=== PATIENT | male | born 1990 | race Caucasian/White ===

== ENCOUNTER 2018-10-27 14:47 | Emergency (ER) | payer OTHER, SELFPAY ==
[2018-10-27 15:05] VITALS: BP 130/92; PULSE 112; RESP 18; TEMP 38.3; O2SAT 97
--- NOTE | 2018-10-27 15:10 | W.ED.GENAD ---
Discharge Plan Disposition Patient Disposition: HOME Condition: Good Discharge Details Chief Complaint: Sorethroat Clinical Impression: Pharyngitis Primary Care Provider: None,None ED Provider: Gerry Chaney Home Meds and New Rx's Prescriptions: New amoxicillin 500 mg capsule 500 mg PO BID Qty: 20 RF: 0 Discharge Instructions Instructions: Pharyngitis (ED) Additional Instructions: Please take 800 mg of ibuprofen every 6 hours and 1000 mg of Tylenol every 6 hours for control of your pain and fever. Please take the antibiotic as directed. If you notice any worsening of your symptoms, or any new symptoms such as vomiting, diarrhea, fever, chills, shortness of breath, chest pain, numbness, weakness, or fainting , please return immediately to the emergency department for reevaluation. Please follow up with your primary care provider as soon as possible for reassessment and reevaluation. As always, it was a pleasure participating in your medical care today. Medical Decision Making This is a very pleasant 27-year-old male who presents for evaluation of sore throat. The child's 3 other children have all been diagnosed strep positive at their die maker stamping. Patient's current signs and symptoms are clinically consistent with strep. He has cervical lymphadenopathy that is tender, no cough, notable erythema in the posterior oropharynx. Screening strep test is negative however with his clinical symptoms suggestive of strep I do feel that treatment is indicated. He is febrile, and will be given Tylenol Motrin. No signs of meningitis, peritonsillar abscess, or other significant abnormality. I discussed red flags which to return as well as the importance of close follow-up with his primary care provider. I have extensively reviewed the treatment plan and discharge instructions with the patient. I have addressed all patient concerns at this time. The patient was made aware of what symptoms to monitor for that would warrant a return to the emergency department. Discussed the plan with the patient, they demonstrate verbal understanding and agreement with our assessment and plan at this time. HPI General Date/Time Provider Initiated Documentation: 10/27/18 14:56. HPI Narrative: This is a 27-year-old male with no past medical history who presents today for sore throat for the last 3 days. Patient's 3 children have all been diagnosed as strep positive and are currently on antibiotics. Patient denies any difficulty swallowing, chest pain, cough, severe headache, neck pain or neck stiffness. He does admit to mild fever and chills. Denies any other complaints at this time. He denies any severe fatigue or recent history of mono or mono exposure. He denies any recent surgery, IV or illicit drug use or pertinent family history. Related Data Home Medications Medication Instructions Recorded Confirmed amoxicillin 500 mg PO BID #20 cap 10/27/18 Previous Rx's Medication Instructions Recorded amoxicillin 500 mg PO BID #20 cap 10/27/18 Allergies Allergy/AdvReac Type Severity Reaction Status Date / Time No Known Allergies Allergy Unverified 10/27/18 15:02 General Stated Complaint: Sorethroat JONATHAN: 4 Review of Systems Review of Systems All systems reviewed & are unremarkable except as noted in HPI and below PFSH Social History Smoking and Tabacco status: Never Exam Narrative Exam Narrative: 1.Const: Well-nourished, Well-developed, appearing stated age 2.Eyes: PERRL, no conjunctival injection, and symmetrical lids. 3.ENT: Atraumatic external nose and ears. Moist MM. Neck: Symmetric, trachea midline, No thyromegaly. Notable anterior cervical lymphadenopathy, tender cervical lymphadenopathy. Notable erythema in the posterior oropharynx. No evidence of tonsillar exudate. No signs of peritonsillar abscess, uvular deviation, airway compromise, or other abnormality. No neck mass. Patient demonstrates good movement of cervical neck. There is no nuchal rigidity, no nuchal tenderness. Patient is able to flex the neck without any difficulty or significant pain. Negative Kernig's and Brudzinski sign. 4.CVS: +S1/S2, No murmurs or gallops. Peripheral pulses 2+ and equal in all extremities. Brisk capillary refill in all extremities. 5.RESP: Unlabored respiratory effort. Clear to auscultation bilaterally. No wheezes rales or rhonchi 6.GI: Soft, Nontender/Nondistended, No hepatosplenomegaly. No guarding or rebound. 7.MSK: Normocephalic/Atraumatic, Extremities w/o deformity or ttp No cyanosis or clubbing, Normal movement of all extremities 8.Skin: Warm, Dry. No rashes or lesions. 9.Neuro: inventory manager II-XII grossly intact. Sensation grossly intact, no focal neurologic deficits. 10.Psych: (AAO) x3. Appropriate mood and affect Course Vital Signs Temperature 38.3 C H 10/27/18 15:05 Pulse 112 H 10/27/18 15:05 Respiratory Rate 18 10/27/18 15:05 Blood Pressure 130/92 H 10/27/18 15:05 Pulse Oximetry 97 10/27/18 15:05 Temperature 38.3 C H 10/27/18 15:05 Temperature Source Skin 10/27/18 15:05 Pulse 112 H 10/27/18 15:05 Respiratory Rate 18 10/27/18 15:05 Blood Pressure 130/92 H 10/27/18 15:05 Pulse Oximetry 97 10/27/18 15:05 Oxygen Delivery Method Room Air 10/27/18 15:05 Oxygen Flow Rate 0 10/27/18 15:05 Pain Level 6 10/27/18 15:05
[2018-10-27] MEDS: Acetaminophen 500 MG TAB 1000 MG PO (15:14)
[2018-10-27] MEDS: Ibuprofen 800 MG TAB PO (15:14)
== END 2018-10-27 15:15 | disposition home or self-care (01) ==
LOC: ER 15:34
PROVIDERS: Emergency Provider Student in an Organized Health Care Education/Training Program
DX: J02.9 Acute pharyngitis, unspecified (principal); R50.9 Fever, unspecified; R59.0 Localized enlarged lymph nodes
CPT/HCPCS: 87880; 99283; 87081

== ENCOUNTER 2019-07-28 16:01 | Emergency (ER) | payer OTHER, SELFPAY ==
[2019-07-28 16:05] VITALS: BP 172/92; PULSE 107; RESP 18; TEMP 36.7; O2SAT 97
--- NOTE | 2019-07-28 16:22 | W.ED.GENAD ---
Discharge Plan Disposition Patient Disposition: HOME Condition: Stable Discharge Details Chief Complaint: RespSymp Clinical Impression: Hoarseness of voice, History of gastroesophageal reflux (GERD) Primary Care Provider: None,None ED Provider: Kate Watkins Home Meds and New Rx's Prescriptions: No Action No Known Home Meds RF: 0 Discharge Instructions Instructions: Gastroesophageal Reflux Disease (ED) Additional Instructions: Avoid possible dietary triggers for reflux which can include alcohol, smoking, spicy foods, chocolate, peppermint, etc. Be sure to rest your voice as much as possible. You can try drinking warm water with lemon to help soothe your throat and voice. You will receive a call from care management regarding a follow up appointment with a primary care doctor, the ear, nose and throat doctor and possible surgery for evaluation. Return to the emergency department if you develop any worsening or new concerning symptoms. Referrals: Martina Castaneda MD [ [facility] STAFF PHYSICIAN] - Alan Velasco MD [ [facility] STAFF PHYSICIAN] - Discharge Data Discharge Date/Time-TO BE ENTERED AT DEPARTURE: 07/28/19 17:15 Discharge Physician: Kate Watkins Medical Decision Making 28-year-old male presents with hoarseness for the past 5 weeks. Also admitted to intermittent chest congestion but states this is slightly improved with Mucinex. He has no other associated symptoms. He denies fever, sore throat, cough, chest pain, shortness of breath, abdominal pain, weight loss, headache or neck pain. Blood pressure mildly hypertensive. Heart rate normal on evaluation. Afebrile. Patient appears nontoxic. Normal ENT exam. Lungs clear. Abdomen soft nontender. After long discussion with patient about possible etiology, it appears that his GERD may be a more contributing factor. He denies any history of allergy symptoms and this does not appear infectious. Discussed that a vocal cord polyp or mass or other abnormality could be a possibility. Patient snores heavily at night and advised that he also obtain a sleep study. Patient is not a PCP. Will place him on care management list to arrange with PCP to establish care, follow-up with ENT for further evaluation, as well as follow-up with surgery for evaluation and possible EGD. He is advised to restart his PPI, rest his voice, drink warm water and avoid possible triggers of his GERD. Advised to return with any concerns. Medical Records Medical records reviewed: Yes I reviewed the patient's medical records. HPI General Mode of arrival: ambulatory. Date/Time Provider Initiated Documentation: 07/28/19 16:15. Limitations to Documentation: no limitations. Information obtained by: patient. HPI Narrative: Patient is a 28-year-old male who presents with hoarseness of voice for the past 5 weeks. Patient states he awoke one morning with a hoarse voice which then progressed to him losing his voice. He states over the past week he feels that this is slightly improved. Patient states he often has indigestion and reflux depending on certain foods in his diet. He states he has had intermittent chest congestion which has been improved with Mucinex. He denies any fever, ear pain, sore throat, cough, chest pain, shortness of breath, abdominal pain, nausea, vomiting or diarrhea. He denies any weight loss. He denies any recent injury. He denies headache or neck pain. Related Data Home Medications Medication Instructions Recorded Confirmed Unknown [No Known Home Meds] 07/28/19 07/28/19 Allergies Allergy/AdvReac Type Severity Reaction Status Date / Time No Known Allergies Allergy Unverified 07/28/19 16:07 General Stated Complaint: RespSymp JONATHAN: 4 Review of Systems All systems reviewed & are unremarkable except as noted in HPI and below Constitutional Constitutional: Reports as per HPI, Denies chills and Denies fever(s) Eyes Eyes: Denies blurry vision ENT Ears, Nose, Mouth, and Throat: Reports change in voice, Denies dizziness, Reports hoarseness, Denies sore throat and Denies throat swelling Cardiovascular Cardiovascular: Denies chest pain and Denies dyspnea Respiratory Respiratory: Denies cough and Denies dyspnea Gastrointestinal Gastrointestinal: Denies abdominal pain, Denies diarrhea and Denies vomiting Genitourinary Genitourinary: Denies hematuria and Denies dysuria Musculoskeletal Musculoskeletal: Denies back pain and Denies numbness Integumentary/Breasts Skin/Breast: Denies lesions and Denies rash Neurologic Neurologic: Denies dizziness, Denies focal weakness and Denies numbness Allergic/Immunologic Allergic/Immunologic: Denies throat swelling [facility] Medical History No significant past medical history (Acute) Surgical History No significant past surgical history (Acute) Social History Smoking/Tobacco Use Status: Former Tobacco Use Alcohol Intake: never Drug use: Never Do you feel safe in your relationship?: Yes Exam Const General: cooperative, healthy appearing and no acute distress HENMT Head: normal to inspection Ears: hearing grossly normal bilaterally, external ears normal and TM's normal bilaterally General nose exam: external nose normal Face and sinus: normal facial exam Mouth: oral mucosae normal Throat: posterior oropharynx normal Eyes General: appearance normal, both eyes and all related structures Neck Neck: normal visual inspection Resp Effort & Inspection: normal respiratory effort and able to speak in complete sentences Auscultation: clear to auscultation bilaterally Cardio Rate: regular rate Rhythm: regular rhythm GI Inspection: normal to inspection Palpation: not firm, no masses and nontender Auscultation: normal bowel sounds Skin General skin exam: no rashes or lesions noted Neuro General: alert, awake and oriented x3 Motor: muscle tone normal throughout Extrem General: normal to inspection and full ROM Psych Appearance: grossly normal Affect: normal affect Course Vital Signs Vital signs: Vital Signs Temperature 98.1 F 07/28/19 16:05 Pulse 107 H 07/28/19 16:05 Respiratory Rate 18 07/28/19 16:05 Blood Pressure 172/92 H 07/28/19 16:05 Pulse Oximetry 97 07/28/19 16:05 Temperature 98.1 F 07/28/19 16:05 Temperature Source Skin 07/28/19 16:05 Pulse 107 H 07/28/19 16:05 Respiratory Rate 18 07/28/19 16:05 Respiratory Effort Non-Labored 07/28/19 16:08 Respiratory Depth Normal 07/28/19 16:08 Blood Pressure 172/92 H 07/28/19 16:05 Blood Pressure Position Sitting 07/28/19 16:05 Pulse Oximetry 97 07/28/19 16:05 Oxygen Delivery Method Room Air 07/28/19 16:05 Oxygen Flow Rate 0 07/28/19 16:05
--- NOTE | 2019-07-28 16:55 | NUR.NOTE ---
Nursing Note: copy put in [facility] box 07/28/19
--- NOTE | 2019-07-30 16:07 | CMPROGNOTE_ITS ---
Care Management Progress Note CM faxed ED F/U PCP assignment request to [facility], 07/30/19@9391 CM faxed referral including clinicals to [facility] for requested follow up, 07/30/19@2062 CM faxed referral including clinicals to ENT for requested follow up, 07/30/19@8693
--- NOTE | 2019-07-30 16:07 | PDOC.ERCMPRO ---
Care Management Progress Note CM faxed ED F/U PCP assignment request to [facility], 07/30/19@8741 CM faxed referral including clinicals to [facility] for requested follow up, 07/30/19@1252 CM faxed referral including clinicals to ENT for requested follow up, 07/30/19@8643
== END 2019-07-28 17:15 | disposition home or self-care (01) ==
PROVIDERS: Emergency Provider Physician Assistant
DX: R49.0 Dysphonia (principal); K21.9 Gastro-esophageal reflux disease without esophagitis; R03.0 Elevated blood-pressure reading, without diagnosis of hypertension; Z87.891 Personal history of nicotine dependence
CPT/HCPCS: 99282

== ENCOUNTER 2021-01-01 14:14 | Emergency (ER) | payer OTHER, SELFPAY ==
[2021-01-01 14:19] VITALS: BP 154/84; PULSE 100; RESP 18; TEMP 36.7; O2SAT 95
--- NOTE | 2021-01-01 15:20 | ED.GENADUL_ITS ---
Discharge Plan Disposition Patient Disposition: HOME Condition: Stable Discharge Details Clinical Impression: Rash associated with COVID-19 Primary Care Provider: None,None ED Provider: Parmjit Sparks Home Meds and New Rx's Prescriptions: No Action No Known Home Meds RF: 0 Discharge Instructions Instructions: COVID-19 (Coronavirus Disease 2019) (ED) Additional Instructions: Please follow-up with a primary care physician. Rest at home and quarantine until no fever or symtpoms for >48hours - follow guidance as directed by [facility]. Drink plenty of fluids to stay hydrated. Return to the ER for any worsening or new concerning symptoms. Medical Decision Making 30yo m with COVID, fever recently broke, has rash abdomen and upper thighs since this AM that is now resolved. Suspect viral exanthem. Patient saturating well and in no respiratory distress. Plan for discharge with outpatient follow-up - will need PCP established. Referred to care management. Usual and customary discharge instructions reviewed with patient. HPI General Mode of arrival: ambulatory . Date/Time Provider Initiated Documentation: 01/01/21 14:18 . Limitations to Documentation: no limitations . Information obtained by: patient . HPI Narrative: 30yo m here with chief complaint of rash. Patient notes rash noticed this AM. Red, not itchy, localized to upper thighs bilateral and abdomen. Abdomen has not resolved and rash on legs improved. No penile discharge or pain. No tick bites. Patient tested positive for COVID 10 days ago and has persistent nonproductive cough and intermittent fever. Notes fever broke this AM. Patient has no associated chest pain or SOB. No leg swelling or calf pain. Related Data Home Medications Medication Instructions Recorded Confirmed Unknown [No Known Home Meds] 07/28/19 07/28/19 Allergies Allergy/AdvReac Type Severity Reaction Status Date / Time No Known Allergies Allergy Unverified 01/01/21 14:26 General Stated Complaint: RashLesion JONATHAN: 3 Review of Systems All systems reviewed & are unremarkable except as noted in HPI and below Constitutional Constitutional: Reports as per HPI Respiratory Respiratory: Reports as per HPI [facility] Medical History No significant past medical history Surgical History No significant past surgical history Social History Smoking/Tobacco Use Status: Former Tobacco Use Smoking risk assessment performed?: Yes Alcohol Intake: never Drug use: Never Substance use type: does not use Do you feel safe at home: Yes Do you feel safe in your relationship?: Yes Exam Const General: cooperative and no acute distress HENMT Mouth: moist mucous membranes Eyes Conjunctivae: normal conjunctivae Sclera: normal sclerae Neck Neck: trachea midline Resp Effort & Inspection: normal respiratory effort, able to speak in complete sentences, not labored and no respiratory distress Cardio Rate: regular rate (98bpm) and not tachycardic Rhythm: regular rhythm GI Palpation: soft and nontender Penis: normal penis Meatus: meatus normal and no meatla discharge Scrotum: scrotum normal Skin Rashes: rashes noted (faint pink blotchy macules on upper thighs, carri) Neuro General: patient alert, patient awake, patient oriented x3 and tone normal Extrem General: no edema Psych Appearance: grossly normal Mental Status: mental status grossly normal Speech and Movement: speech and movement normal Course Vital Signs Vital signs: Vital Signs Temperature 36.7 C 01/01/21 14:19 Pulse 100 H 01/01/21 14:19 Respiratory Rate 18 01/01/21 14:19 Blood Pressure 154/84 H 01/01/21 14:19 Pulse Oximetry 95 01/01/21 14:19 Temperature 36.7 C 01/01/21 14:19 Temperature Source Temporal Artery Scan 01/01/21 14:19 Pulse 100 H 01/01/21 14:19 Respiratory Rate 18 01/01/21 14:19 Respiratory Effort Non-Labored 01/01/21 14:27 Blood Pressure 154/84 H 01/01/21 14:19 Blood Pressure Position Supine 01/01/21 14:19 Pulse Oximetry 95 01/01/21 14:19 Oxygen Delivery Method Room Air 01/01/21 14:19 Oxygen Flow Rate 0 01/01/21 14:19 Pain Level 4 01/01/21 14:19
[2021-01-01 15:21] VITALS: BP 137/81; PULSE 98; RESP 16; TEMP 36.8; O2SAT 96
--- NOTE | 2021-01-01 15:31 | NUR.NOTE ---
Nursing Note: referral to cm for pcp. MG
--- NOTE | 2021-01-02 15:15 | PDOC.ERCMPRO ---
- If Service Date Differs Date of service: 01/02/21 Time of Service: 15:15 Care Management Progress Note Rip is seen in the ED for a rash associated with Covid 19. At the request of ED provider, CM coordinates a referral to SCHUYLER Alejo, AIRCRA[employer] INSTRUMENT REPAIRER[employer]BC, of [facility], on-call provider, to assist Rip in obtaining a follow up appointment and in establishing care with a PCP.
== END 2021-01-01 15:37 | disposition home or self-care (01) ==
LOC: ER 15:32
PROVIDERS: Emergency Provider Student in an Organized Health Care Education/Training Program
DX: U07.1 COVID-19 (principal); R21 Rash and other nonspecific skin eruption; R05 Cough
CPT/HCPCS: 36415; 99283; 99284

== ENCOUNTER 2022-06-05 16:50 | Emergency (ER) | payer OTHER, SELFPAY ==
[2022-06-05] VITALS (13 sets, daily range): BP systolic 147–159; BP diastolic 86–90; PULSE 97–111; RESP 12–23; TEMP 36.8; O2SAT 93–99
--- NOTE | 2022-06-05 16:45 | RT.EKG_ITS ---
APPROVED REPORT Exam: Resting ECG Reason for Exam: chest pain Patient Location: E HR:102 bpm ECG Measurements Heart Rate 102 AXIS CO 132 P 39 QRSd 83 QRS 14 QT 329 T 29 QTc 429 Conclusion Sinus tachycardia...rate> 99
--- NOTE | 2022-06-05 17:15 | DI.RAD_ITS ---
Exam(s) XR CHEST 2V PA LATERAL EXAM: XR CHEST 2V PA LATERAL CLINICAL HISTORY: chest pain. TECHNIQUE: 2D digital imaging was performed. COMPARISON: No exams were available for comparison FINDINGS: 2 views: Heart size is normal. The mediastinum is not widened. Lungs are clear. No infiltrates nor pleural effusions. IMPRESSION: No acute pulmonary findings. DATA REPOSITORY: RADIATION DOSE DELIVERED:
--- NOTE | 2022-06-05 17:21 | ED.GENADUL_ITS ---
Discharge Plan Disposition Patient Disposition: HOME Condition: Stable Discharge Details Chief Complaint: Chest Pain Clinical Impression: Chest pain Primary Care Provider: None,None ED Provider: Mat Mosquera Home Meds and New Rx's Prescriptions: No Action No Known Home Meds Discharge Instructions Instructions: Chest Pain (ED) Additional Instructions: your blood work showed a mild increase in your liver functions tests, your tests to evaluate for cardiac causes of your pain were negative i placed you on the follow up list to see a primary care provider if you feel more ill, have severe worsening pain or difficulty breathing return to the emergency department Medical Decision Making 31 yo former smoker with no chronic medical problems comes in with cc of chest pain and left hand numbness. He stateshe has had the chest pain off and on for several weeks and is not associated with exertion and will come on randomly. He gets an ache in the anterior chest, no pressure, no radiation of the pain, no back pain or n/v or diaphoresis. He states the last two days he has had intermittent numbness in the left hand as well, denies weakness, vision changes, slurred speech. He arrives stable and appears well speaking in full sentences. He has clear lungs, no jvd, normal heart sounds. He has normal sensation and rom of the hand, normal pulses and no swelling. He states the whole hand normally goes numb not specific fingers. He does do a lot of repetitive motion with work with his arms so suspect this could be a peripheral neuropathy, nih of 0 so doubt cva and no other symptoms to suggest tia. Will obtain ecg and troponin, heart score is 2. no tearing back pain and normal vascular exam so doubt dissec tion. Wells low and perc negative so doubt pe labs other than mild elevation in lft's unremarkable, no drug abuse and so suspect this could be from being mildly oveweight and possible nonalcoholic fa tty liver disease, has no ruq tenderness at all on exam so doubt gallbladder pathology. His troponin is negative and so is his xray, given over 3 hours of symptoms do not feel delta troponin indicated. He is stable for d/c, advised to f/u with pcp and return precautions given Differential Diagnosis Differential Diagnosis: nstemi, cad, chest wall pain, peripheral neuropathy Lab Data Lab results reviewed: Yes I reviewed the patient's lab results. ECG Data Attestation: I personally reviewed and interpreted this ECG (s) as follows: Prior ECG tracings: not available for review Interpretation: sinus tachycardia, rate of 101, no stemi HPI General Mode of arrival: ambulatory . Date/Time Provider Initiated Documentation: 06/05/22 17:07 . Limitations to Documentation: no limitations . Information obtained by: patient . History of Present Illness 31 year old M presents to the emergency department with the chief complaint of chest pain, Patient started experiencing this week(s) (2) and it has been intermittent. No relieving factors improve symptom(s), No exacerbating factors reported . Patient notes other (left hand numbness). Patient did receive the following treatments prior to arrival, none Related Data Home Medications Medication Instructions Recorded Confirmed Unknown [No Known Home Meds] 07/28/19 06/05/22 Allergies Allergy/AdvReac Type Severity Reaction Status Date / Time No Known Allergies Allergy Unverified 06/05/22 17:01 General Stated Complaint: Chest Pain JONATHAN: 2 Review of Systems All systems reviewed & are unremarkable except as noted in HPI and below Constitutional Constitutional: Denies chills, Denies fever(s) and Denies weakness Eyes Eyes: Denies loss of vision Cardiovascular Cardiovascular: Denies dyspnea Respiratory Respiratory: Denies cough and Denies dyspnea Gastrointestinal Gastrointestinal: Denies abdominal pain, Denies nausea and Denies vomiting Musculoskeletal Musculoskeletal: Denies joint swelling Neurologic Neurologic: Denies loss of vision and Denies weakness PFSH All Active Problems (Updated 06/05/22 @ 18:51 by Mat Mosquera MD) Rash associated with COVID-19 (Acute) Chest pain (Acute) Medical History No significant past medical history Surgical History No significant past surgical history Social History Smoking/Tobacco Use Status: Former Tobacco Use Smoking risk assessment performed?: Yes Alcohol Intake: never Drug use: Never Substance use type: does not use Do you feel safe at home: Yes Do you feel safe in your relationship?: Yes Exam Const General: no acute distress Orientation: alert HENMT Head: normal to inspection Ears: external ears normal General nose exam: external nose normal Mouth: moist mucous membranes Eyes General: appearance normal, both eyes and all related structures Neck Neck: normal visual inspection Resp Effort & Inspection: normal respiratory effort and able to speak in complete sentences Cardio Rate: regular rate GI Palpation: soft and nontender Skin General skin exam: no rashes or lesions noted Neuro General: patient alert and patient oriented x3 Extrem General: normal to inspection Psych Mental Status: mental status grossly normal Course Vital Signs Vital signs: Vital Signs Temperature 36.8 C 06/05/22 16:53 Pulse 99 H 06/05/22 16:53 Respiratory Rate 16 06/05/22 16:53 Blood Pressure 159/86 H 06/05/22 16:53 Pulse Oximetry 99 06/05/22 16:53 Temperature 36.8 C 06/05/22 16:53 Temperature Source Oral 06/05/22 16:53 Pulse 99 H 06/05/22 16:53 Respiratory Rate 16 06/05/22 16:53 Blood Pressure 159/86 H 06/05/22 16:53 Blood Pressure Position Sitting 06/05/22 16:53 Pulse Oximetry 99 06/05/22 16:53 Oxygen Delivery Method Room Air 06/05/22 16:53 Oxygen Flow Rate 0 06/05/22 16:53 Pain Level 4 06/05/22 16:53
[2022-06-05 17:44] LABS: Abs Immature Grans 0.09 10^3/uL (0.0-0.06); Absolute Basophil Count 0.05 10^3/uL (0.0-0.2); Absolute Eosinophil Count 0.07 10^3/uL (0.0-0.7); Absolute Lymphocyte Count 2.76 10^3/uL (1.2-3.4); Absolute Monocyte Count 0.68 10^3/uL (0.1-0.8); Absolute Neutrophil Count 6.99 10^3/uL (1.2-6.7); Basophils % 0.5; Eosinophils % 0.7; HCT 38.7 % (40.0-50.0); HGB 13.5 g/dL (13.5-17.5); Immature Grans % 0.8; Lymphocytes % 25.9; MCH 30.9 pg (27.0-33.0); MCHC 34.9 % (32.0-36.0); MCV 89 fL (80-95); MPV 11.4 fL (8.0-11.0); Monocytes % 6.4; Neutrophils % 65.7; Platelet Count 155 10^3/uL (130-400); RBC 4.37 10^6/uL (4.36-5.78); RDW 14.8 % (11.8-14.1); RDW-SD 47.7 fL; WBC 10.64 10^3/uL (4.4-10.8)
[2022-06-05 18:08] LABS: ALT 84 U/L (16-63); AST 39 U/L (15-37); Alkaline Phosphatase 113 U/L (46-116); BUN 15 mg/dL (7-18); Bilirubin, Total 1.5 mg/dL (0.2-1.0); CREATININE 0.9 mg/dL (0.70-1.30); Calcium 8.8 mg/dL (8.5-10.1); Chloride 100 mmol/L (98-107); Estimated GFR 116.37 (mL/min/1.73m2); Glucose 213 mg/dL (74-106); Magnesium 1.8 mg/dL (1.8-2.4); Potassium 3.5 mmol/L (3.5-5.1); Sodium 137 mmol/L (136-145); Total Protein 8.3 g/dL (6.4-8.2); Troponin I < 50 ng/L (<or=60)
--- NOTE | 2022-06-05 18:22 | DI.VRAD_ITS ---
PROCEDURE INFORMATION: Exam: XR Chest Exam date and time: 06/05/2022 5:45 PM Age: 31 years old Clinical indication: Other: Chest pain TECHNIQUE: Imaging protocol: Radiologic exam of the chest. Views: 2 views. COMPARISON: No relevant prior studies available. FINDINGS: Lungs: Unremarkable. No consolidation. Pleural spaces: Unremarkable. No pleural effusion. No pneumothorax. Heart/Mediastinum: Unremarkable. No cardiomegaly. Bones/joints: Unremarkable. IMPRESSION: No acute findings. Dictated and Authenticated by: Corey Martin MD. Ordering:LUIS E Rivero MD
--- NOTE | 2022-06-06 13:37 | NUR.NOTE ---
Nursing Note: Referral given to Care Management for needs PCP, chest pain, within 1 week.
[2022-06-07 11:37] LABS: Hepatitis A Antibody IgM Negative (Negative); Hepatitis B Core Antibody Negative (Negative); Hepatitis B surface Ag Negative (Negative); Hepatitis C Ab w Rflx HCV PCR Negative (Negative)
== END 2022-06-05 19:01 | disposition home or self-care (01) ==
PROVIDERS: Emergency Provider Emergency Medicine
DX: R07.9 Chest pain, unspecified (principal); R20.0 Anesthesia of skin; R79.89 Other specified abnormal findings of blood chemistry; Z87.891 Personal history of nicotine dependence
CPT/HCPCS: 80053; 86704; 86709; 86803; 87340; 93005; 99283; 71046; 83735; 84484; 85025; 93010; 99284

== ENCOUNTER 2022-11-06 18:52 | Emergency (ER) | payer OTHER, SELFPAY ==
[2022-11-06 18:57] VITALS: BP 169/89; PULSE 85; RESP 16; TEMP 36.9; O2SAT 99
--- NOTE | 2022-11-06 19:14 | ED.GENADUL_ITS ---
Discharge Plan Disposition Patient Disposition: Home Discharge Details Clinical Impression: Otitis media Primary Care Provider: None,None ED Provider: Antonio Bryant Home Meds and New Rx's Prescriptions: New amoxicillin 500 mg capsule 500 mg PO TID 7 Days Qty: 21 0RF Discharge Instructions Instructions: Ear Infection (ED) Additional Instructions: Please follow with your primary care physician. Please take medications as prescribed. Return to the emergency department for any worsening symptoms Medical Decision Making 32-year-old male presents with left ear pain that developed for the past 24 hours, afebrile nontoxic no nausea or vomiting, evidence of left otitis media on examination. Right TM clear. Patient be started amoxicillin given a dose of dexamethasone and Toradol here in the department. Home care instructions and return precautions given. No evidence of mastoiditis or deep space infection of the head or neck. HPI General Date/Time Provider Initiated Documentation: 11/06/22 18:55 . HPI Narrative: 32-year-old male no past medical history presents with 1 day of left ear pain, preceding sinus congestion and upper respiratory symptoms over the last several days Related Data Home Medications Medication Instructions Recorded Confirmed amoxicillin 500 mg capsule 500 mg PO TID 7 days #21 caps 11/06/22 Previous Rx's Medication Instructions Recorded amoxicillin 500 mg capsule 500 mg PO TID 7 days #21 caps 11/06/22 Allergies Allergy/AdvReac Type Severity Reaction Status Date / Time No Known Allergies Allergy Unverified 11/06/22 19:01 General Stated Complaint: EarProblem JONATHAN: 4 Review of Systems Narrative: Review of Systems Constitutional: negative Eyes: negative ENT: Ear pain Cardiovascular: negative Respiratory: negative Gastrointestinal: negative : negative Musculoskeletal: negative Skin: negative Neurologic: negative Psych: negative PFSH All Active Problems (Updated 11/06/22 @ 19:17 by Antonio Bryant MD) Rash associated with COVID-19 (Acute) Otitis media (Acute) Medical History No significant past medical history Surgical History No significant past surgical history Social History Smoking/Tobacco Use Status: Former Tobacco Use Smoking risk assessment performed?: Yes Alcohol Intake: never Drug use: Never Substance use type: does not use Do you feel safe at home: Yes Do you feel safe in your relationship?: Yes Exam Narrative Exam Narrative: Physical Examination General: alert, awake, cooperative, resting comfortably, no acute distress HEENT: normocephalic, atraumatic; PERRL, EOM intact, conjunctiva normal; no nasal discharge; moist mucous membranes, oral and pharyngeal mucosa normal, tolerating secretions; erythematous bulging left TM with purulent effusion, normal right TM, no mastoid tenderness no ear protrusion Neck: supple, trachea midline; full ROM Chest: normal to inspection Respiratory: normal respiratory effort, speaking in full sentences, clear to auscultation, no wheezing, rales or rhonchi Cardiac: regular rate, regular rhythm, S1S2 intact, no murmurs rubs or gallops GI: abdomen soft, non-tender, non-distended; no palpable mass or hepatosplenomegaly Skin: no lesions, rashes or trauma appreciated Neuro: AAOx3, normal speech, moving all extremities Psych: Appropriate mood and affect Course Vital Signs Vital signs: Vital Signs Temperature 36.9 C 11/06/22 18:57 Pulse 85 11/06/22 18:57 Respiratory Rate 16 11/06/22 18:57 Blood Pressure 169/89 H 11/06/22 18:57 Pulse Oximetry 99 11/06/22 18:57 Temperature 36.9 C 11/06/22 18:57 Temperature Source Oral 11/06/22 18:57 Pulse 85 11/06/22 18:57 Respiratory Rate 16 11/06/22 18:57 Respiratory Effort Normal 11/06/22 18:57 Blood Pressure 169/89 H 11/06/22 18:57 Blood Pressure Position Sitting 11/06/22 18:57 Pulse Oximetry 99 11/06/22 18:57 Oxygen Delivery Method Room Air 11/06/22 18:57 Oxygen Flow Rate 0 11/06/22 18:57 Pain Level 9 11/06/22 19:02
[2022-11-06] MEDS: Amoxicillin 500 MG CAP PO (19:16)
[2022-11-06] MEDS: Dexamethasone 4 MG TAB 8 MG PO (19:16)
[2022-11-06] MEDS: Ketorolac 15 MG/ML VIAL IM (19:16)
== END 2022-11-06 19:28 | disposition home or self-care (01) ==
PROVIDERS: Emergency Provider Emergency Medicine
DX: H66.92 Otitis media, unspecified, left ear (principal)
CPT/HCPCS: 96372; 99284; J1885; J8540

== ENCOUNTER 2024-05-06 15:14 | Emergency (ER) | payer OTHER, SELFPAY ==
[2024-05-06] VITALS (9 sets, daily range): BP systolic 137–172; BP diastolic 70–98; PULSE 94–116; RESP 14–25; TEMP 37.2; O2SAT 94–98
--- NOTE | 2024-05-06 15:15 | RT.EKG_ITS ---
APPROVED REPORT Exam: Resting ECG Reason for Exam: palpitations Patient Location: E HR:116 bpm ECG Measurements Heart Rate 116 AXIS [place] 126 P 40 QRSd 81 QRS 12 QT 310 T 35 QTc 423 Conclusion Sinus tachycardia...rate> 99 Atrial premature complexes...SV complexes w/ short R-R intvls Narrow complex sinus tachycardia at a rate of 116. Normal axis. Intervals within normal limits. No acute injury pattern. Compared to prior dated 2 years ago rate is increased slightly.
--- OUTSIDE RECORDS SUMMARY | 2024-05-06 15:33 | XMS_ITS | Encounter Summary ---
Author Organization [facility] Address [address] [place] [id number] Care Team Providers Care Loading Unit Operator Name Role Phone Unavailable Primary Care Provider Unavailabl e Encounter Details Date Type Department Care Team (Late st Contact Info) Description 06/06/2022 Lab Requisition [facility] Pathology & Laboratory Medicine - [facility] [address] [place] [address] Outr Resulting Lab, Provider Social History Tobacco Use Types Packs/Day Years Used Date Smoking Tobacco: Never Assessed Sex and Gender Information Value Date Recorded Sex Assigned at Not on file Gender Identity Not on file Sexual Orientation Not on file documented as of this encounter Plan of Treatment Not on file documented as of this encounter Procedures Procedure Name Priority Date/Time Associated Diagnosis Comments ACUTE HEPATITIS PROFILE Routine 06/05/2022 17:30 EDT documented in this encounter Results * ACUTE HEPATITIS PROFILE (06/05/2022 17:30 EDT) Hep B Surface Ag Negative Negative 06/07/2022 11:33 EDT [facility] Hep C Antibody Negative Negative 06/07/2022 11:33 EDT [facility] Hepatitis A Antibody, IgM Negative Negative 06/07/2022 11:33 EDT [facility] Comment:The results of this assay can be falsely lowered due to the consumption of Biotin. Hepatitis B Core Ab, Total Negative Negative 06/07/2022 11:33 EDT [facility] Blood VENOUS BLOOD / Unknown 06/05/2022 17:30 EDT 06/06/2022 17:16 EDT Provider Outr Resulting Lab CHEMISTRY & BLOOD GAS ORDERABLES [facility] [address] [place] [address] documented in this encounter Visit Diagnoses Not on filedocumented in this encounter
--- OUTSIDE RECORDS SUMMARY | 2024-05-06 15:33 | XMS_ITS | Referral Summary ---
Author Organization [facility] Address [address] [place] [address] Care Team Providers Care Machine Operator Picker Name Role Phone Unavailable Primary Care Provider Unavailabl e Social History Tobacco Use Types Packs/Day Years Used Date Smoking Tobacco: Never Assessed Sex and Gender Information Value Date Recorded Sex Assigned at Not on file Gender Identity Not on file Sexual Orientation Not on file Plan of Treatment Not on file
--- OUTSIDE RECORDS SUMMARY | 2024-05-06 15:33 | XMS_ITS | Clinical Summary ---
Author Organization [facility] Address [address] [place] [address] Care Team Providers Care Jail Keeper Name Role Phone Unavailable Primary Care Provider Unavailabl e Social History Tobacco Use Types Packs/Day Years Used Date Smoking Tobacco: Never Assessed Sex and Gender Information Value Date Recorded Sex Assigned at Not on file Gender Identity Not on file Sexual Orientation Not on file Plan of Treatment Health Maintenance Due Date Last Done Comments Hepatitis C Screen 1989 Hepatitis B Vaccine (1 of 3 - 19+ 3-dose series) 11/04 COVID-19 Vaccine (2022-24 season) 2023
[2024-05-06 16:22] LABS: BE (Venous) 1 mmol/L (-2-3); HCO3 (Venous) 26 mmol/L (23-28); O2 Sat (Venous) 84 %; TCO2 (Venous) 23 mmol/L (24-29); pCO2 (Venous) 40 mmHg (41-51); pH (Venous) 7.42 (7.31-7.41); pO2 (Venous) 46 mmHg
[2024-05-06] MEDS: Normal Saline 500 ML 1000 ML IV (16:24)
[2024-05-06 16:25] LABS: Abs Immature Grans 0.04 10^3/uL (0.0-0.06); Absolute Basophil Count 0.05 10^3/uL (0.0-0.2); Absolute Eosinophil Count 0.06 10^3/uL (0.0-0.7); Absolute Lymphocyte Count 2.18 10^3/uL (1.2-3.4); Absolute Monocyte Count 0.59 10^3/uL (0.1-0.8); Absolute Neutrophil Count 6.83 10^3/uL (1.2-6.7); Basophils % 0.5 %; Eosinophils % 0.6 %; HGB 14.5 g/dL (13.5-17.5); Immature Grans % 0.4 %; Lymphocytes % 22.4 %; MCH 31.7 pg (27.0-33.0); MCHC 35.4 % (32.0-36.0); MCV 90 fL (80-95); MPV 11.4 fL (8.0-11.0); Monocytes % 6.1 %; Platelet Count 145 10^3/uL (130-400); RBC 4.57 10^6/uL (4.36-5.78); RDW 14.6 % (11.8-14.1); RDW-SD 47.9 fL; WBC 9.75 10^3/uL (4.4-10.8)
[2024-05-06 16:43] LABS: ALT 63 U/L (16-63); AST 25 U/L (15-37); Albumin 3.8 g/dL (3.4-5.0); Alkaline Phosphatase 125 U/L (46-116); Anion Gap 9.4 mmol/L (3-11); BUN 12 mg/dL (7-18); Bilirubin, Total 1.46 mg/dL (0.2-1.0); CO2 25.6 mmol/L (21.0-32.0); CREATININE 0.9 mg/dL (0.70-1.30); Calcium 8.9 mg/dL (8.5-10.1); Chloride 102 mmol/L (98-107); Creatine Kinase 99 U/L (39-308); Estimated GFR 114.93 (mL/min/1.73m2); Glucose 328 mg/dL (74-106); Magnesium 1.8 mg/dL (1.8-2.4); Potassium 4.1 mmol/L (3.5-5.1); Sodium 137 mmol/L (136-145); Total Protein 7.9 g/dL (6.4-8.2)
[2024-05-06 16:51] LABS: TSH (W/Ref FT4) 2.04 uIU/mL (0.36-3.74)
[2024-05-06 16:58] LABS: Hemoglobin A1C 6.5 % (<5.7)
[2024-05-06 18:12] LABS: Bilirubin Negative (Negative); Blood Negative (Negative); Clarity Clear (Clear); Glucose >=1000 mg/dL (Negative); Ketones Negative (Negative); Leukocyte Esterase Negative (Negative); Nitrite Negative (Negative); Urobilinogen 0.2 mg/dL (Up to 0.2); pH 5.5 (5-8)
[2024-05-06 18:25] LABS: Bacteria Negative HPF (Negative); C & S Indicated? No; Casts Negative LPF (Negative); Crystals Negative HPF (Negative); Epithelial Cells Rare HPF (Negative); Mucus Negative (Negative); RBC Negative HPF (0-2); WBC Negative HPF (0-5)
[2024-05-06] MEDS: metFORMIN 500 MG TAB PO (18:33)
--- NOTE | 2024-05-06 21:19 | ED.GENADUL_ITS ---
Discharge Plan Disposition Patient Disposition: Home Discharge Details Clinical Impression: Acute hyperglycemia Primary Care Provider: None,None ED Provider: Renae Purcell Home Meds and New Rx's Prescriptions: New metformin 500 mg tablet 500 mg PO BID Qty: 60 0RF Discharge Instructions Instructions: Blood Glucose Monitoring, Blood Glucose Test, Diabetes and diet, High Blood Sugar, Adult ED Additional Instructions: Please be sure to follow-up with a primary care physician and giving a 1 month supply of metformin, take this twice daily I recommend purchasing a glucometer and watching your diet, please refer to enclosed information regarding diabetes Try to balance your nails with complex carbohydrates such as whole-wheat bread, add protein with low-fat content, and a vegetable Refer to enclosed information regarding monitoring your blood glucose Please return should you have new or worsening complaints, your blood sugar today was 328, on repeat it was 200 after 1 L of fluids, make sure you are drinking at least eight 8 ounce glasses of water daily Your A1c level is 6.5 which actually is reassuring but does indicate that you are likely a diabetic We will call you to establish care with a primary care Discharge Data Discharge Date/Time-TO BE ENTERED AT DEPARTURE: 05/06/24 19:03 HPI General Date/Time Provider Initiated Documentation: 05/06/24 16:08 . HPI Narrative: This 34-year-old male presents with report of tachycardia at home in the 130s. Patient states he has been having some aches in his upper back and arms. He denies any chest discomfort or shortness of breath. He denies any nausea or vomiting. He does report increased thirst and increased urination. He does not have a primary care physician. He does not smoke tobacco or use alcohol. He denies any illicit substance use. Denies calf pain or swelling or recent flights, surgeries, long drives, history of coagulopathy. Related Data Home Medications ?Medication ?Instructions ?Recorded ?Confirmed metformin 500 mg tablet 500 mg PO BID #60 tabs 05/06/24 Previous Rx's ?Medication ?Instructions ?Recorded metformin 500 mg tablet 500 mg PO BID #60 tabs 05/06/24 Allergies Allergy/AdvReac Type Severity Reaction Status Date / Time No Known Allergies Allergy Unverified 05/06/24 15:24 General Stated Complaint: Palpitatns JONATHAN: 3 Exam Narrative Exam Narrative: 33-year-old male, alert and oriented, no acute distress, pupils equal round reactive to light and commendation, no respiratory distress, cardiac rate consents tachycardia, regular rhythm, no murmur, no peripheral edema, distal pulses intact, no abdominal tenderness, no meningismus, alert and oriented x 4, no rashes or lesions Course Vital Signs Vital signs: Vital Signs Temperature 37.2 C 05/06/24 15:16 Pulse 113 H 05/06/24 15:16 Respiratory Rate 14 05/06/24 15:16 Blood Pressure 165/91 H 05/06/24 15:16 Pulse Oximetry 95 05/06/24 15:16 Temperature 37.2 C 05/06/24 15:16 Temperature Source Oral 05/06/24 15:16 Pulse 99 H 05/06/24 18:40 Pulse 108 H 05/06/24 18:40 Respiratory Rate 20 05/06/24 18:40 Respiratory Effort Normal, Non-Labored 05/06/24 16:19 Blood Pressure 151/89 H 05/06/24 18:40 Blood Pressure Mean 108 05/06/24 18:40 Blood Pressure Position Sitting 05/06/24 15:16 Pulse Oximetry 95 05/06/24 18:40 Oxygen Delivery Method Room Air 05/06/24 15:16 Oxygen Flow Rate 0 05/06/24 15:16 Pain Level 0 05/06/24 15:16 Lab/Test Results Lab/Test Results: Laboratory Tests Range/Units 05/06/24 05/06/24 16:00 17:58 WBC (4.4-10.8) 10^3/uL 9.75 RBC (4.36-5.78) 10^6/uL 4.57 Hgb (13.5-17.5) g/dL 14.5 Hct (40.0-50.0) % 41.0 MCV (80-95) fL 90 MCH (27.0-33.0) pg 31.7 MCHC (32.0-36.0) % 35.4 RDW (11.8-14.1) % 14.6 H Plt Count (130-400) 10^3/uL 145 MPV (8.0-11.0) fL 11.4 H Immature Gran % % 0.4 Neutrophils % % 70.0 Lymphocytes % % 22.4 Monocytes % % 6.1 Eosinophils % % 0.6 Basophils % % 0.5 Nucleated RBC % (0.0-0.3) % 0.0 Absolute Neutrophils (1.2-6.7) 10^3/uL 6.83 H Absolute Lymphocytes (1.2-3.4) 10^3/uL 2.18 Absolute Monocytes (0.1-0.8) 10^3/uL 0.59 Absolute Eosinophils (0.0-0.7) 10^3/uL 0.06 Absolute Basophils (0.0-0.2) 10^3/uL 0.05 VBG pH (7.31-7.41) 7.42 H VBG pCO2 (41-51) mmHg 40 L VBG pO2 mmHg 46 VBG HCO3 (23-28) mmol/L 26 VBG Total CO2 (24-29) mmol/L 23 L VBG O2 Saturation % 84 VBG Base Excess (-2-3) mmol/L 1 Sodium (136-145) mmol/L 137 Potassium (3.5-5.1) mmol/L 4.1 Chloride (98-107) mmol/L 102 Carbon Dioxide (21.0-32.0) mmol/L 25.6 Anion Gap (3-11) mmol/L 9.4 BUN (7-18) mg/dL 12 Creatinine (0.70-1.30) mg/dL 0.9 Est GFR (CKD-EPI 2020) (mL/min/1.73m2) 114.93 Glucose (74-106) mg/dL 328 H Hemoglobin A1c (<5.7) % 6.5 H Calcium (8.5-10.1) mg/dL 8.9 Magnesium (1.8-2.4) mg/dL 1.8 Total Bilirubin (0.2-1.0) mg/dL 1.46 H AST (15-37) U/L 25 ALT (16-63) U/L 63 Alkaline Phosphatase (46-116) U/L 125 H Creatine Kinase (39-308) U/L 99 Total Protein (6.4-8.2) g/dL 7.9 Albumin (3.4-5.0) g/dL 3.8 TSH (0.36-3.74) uIU/mL 2.04 Urine Color (Yellow) Yellow Urine Clarity (Clear) Clear Urine pH (5-8) 5.5 Ur Specific Anderson (1.005-1.025) 1.020 Urine Protein (Neg-Trace) mg/dL Negative Urine Ketones (Negative) mg/dL Negative Urine Blood (Negative) Negative Urine Nitrite (Negative) Negative Urine Bilirubin (Negative) Negative Urine Urobilinogen (Up to 0.2) mg/dL 0.2 Ur Leukocyte Esterase (Negative) Negative Urine RBC (0-2) HPF Negative Urine WBC (0-5) HPF Negative Ur Epithelial Cells (Negative) HPF Rare Urine Crystals (Negative) HPF Negative Urine Bacteria (Negative) HPF Negative Urine Casts (Negative) LPF Negative Urine Mucus (Negative) Negative Ur Culture Indicated? No Urine Glucose (Negative) mg/dL >=1000 H Medical Decision Making 33-year-old male shows tachycardia. EKG shows mild sinus tachycardia without S1Q3T3 or evidence of ischemia or injury. Diagnostic basic labs show glucose of 328, hemoglobin A1c of 6.5, without any evidence of diabetic ketoacidosis, CPK within normal limits urinalysis without ketones or evidence of infection. Lungs are clear to auscultation and respiratory exam is reassuring. Denies any cough or diarrhea. At this time we will treat patient with 1 L of IV fluids, repeat blood glucose of 200, will not give insulin at this time. Will initiate metformin 500 mg twice daily patient does not have primary care physician studies placed on the referral list for follow-up. Patient will need close outpatient reassessment and is given low threshold to return with new or worsening complaints. Will purchase a glucometer for home. Afebrile and nontoxic throughout this encounter. Quality:SDOH Health Related Social Needs: No Data to Display PFSH All Active Problems (Updated 05/06/24 @ 18:16 by CHELY Kaye) Acute hyperglycemia (Acute) Rash associated with COVID-19 (Acute) Medical History No significant past medical history Surgical History No significant past surgical history Social History Smoking/Tobacco Use Status: Former Tobacco Use Smoking risk assessment performed?: Yes Alcohol Intake: never Drug use: Never Substance use type: does not use Do you feel safe at home: Yes Do you feel safe in your relationship?: Yes
[2024-05-09 10:34] LABS: Lyme Ab w Rflx to Lyme Confirm Negative (Negative)
[2024-05-11 21:35] LABS: Anaplasma phagocytophilum Negative (Negative); B. miyamotoi PCR Negative (Negative); Babesia divergens/MO-1 Negative (Negative); Babesia duncani Negative (Negative); Babesia microti Negative (Negative); Ehrlichia chaffeensis Negative (Negative); Ehrlichia ewingii/canis Negative (Negative); Ehrlichia muris eauclairensis Negative (Negative)
== END 2024-05-06 19:03 | disposition home or self-care (01) ==
PROVIDERS: Emergency Provider Physician Assistant
DX: R00.2 Palpitations (principal); R52 Pain, unspecified; R73.9 Hyperglycemia, unspecified
CPT/HCPCS: 36416; 80053; 82550; 82805; 82962; 87798; 93005; 96360; 96361; 99284; 81003; 81015; 83036; 83735; 84443; 85025; 86618; 93010; 99283

== ENCOUNTER 2024-09-29 15:35 | Emergency (ER) | payer OTHER, SELFPAY ==
[2024-09-29] VITALS (37 sets, daily range): BP systolic 124–179; BP diastolic 64–97; PULSE 96–130; RESP 10–29; TEMP 36.7; O2SAT 95–98
--- NOTE | 2024-09-29 15:30 | RT.EKG_ITS ---
APPROVED REPORT Exam: Resting ECG Reason for Exam: fast hr Patient Location: E HR:120 bpm ECG Measurements Heart Rate 120 AXIS [place] 133 P 55 QRSd 81 QRS 12 QT 303 T 65 QTc 423 Conclusion Sinus tachycardia. 120 NORMAL INTERVALS NO STEMI
--- NOTE | 2024-09-29 16:00 | DI.RAD_ITS ---
Exam(s) XR CHEST 2V PA LATERAL EXAM: XR CHEST 2V PA LATERAL CLINICAL HISTORY: tachycardia. TECHNIQUE: 2D digital imaging was performed. COMPARISON: Prior chest x-ray 06/05/2022 FINDINGS: 2 views: Heart size is normal. The mediastinum is not widened. Lungs are clear. No infiltrates nor pleural effusions. IMPRESSION: No acute pulmonary findings. DATA REPOSITORY: RADIATION DOSE DELIVERED:
--- NOTE | 2024-09-29 16:02 | W.ED.GENAD ---
Discharge Plan Disposition Patient Disposition: Home Discharge Details Clinical Impression: Tachycardia Primary Care Provider: None,None ED Provider: Shira Nelson Home Meds and New Rx's Prescriptions: No Action No Known Home Meds Discharge Instructions Instructions: Sinus Tachycardia (DC) Additional Instructions: A referral has been placed to care management to help you establish care with PCP. Please follow-up with them when they call. Further evaluation on outpatient basis to look into the cause of your elevated heart rate as recommended. Overall your cardiac workup today was reassuring. I recommend that you stay well-hydrated. Drink plenty of fluids throughout the day. Continue to keep with track of your blood sugars. I recommend mindfulness techniques and box breathing. An jose r such as [employer] may be helpful, has plenty of meditations available for free. Return to emergency care if he develop new chest pains, episodes of passing out/dizziness, difficulty breathing, racing heart, or if you are very worried and need to be rechecked again immediately Referrals: Care Management [Provider Group] HPI General Date/Time Provider Initiated Documentation: 09/29/24 15:47. HPI Narrative: Rip is a 33 year old male who presents to the ED today for evaluation of sudden onset of tachycardia accompanied by [facility] L sided chest discomfort that radiates into his L shoulder. He reports he was sitting on the couch and felt a sudden fight or flight response, checked his HR and it was 164. This lasted approx 3-4 minutes, was accompanied by anxiety (which has since decreased). No change in CP with movement or position. Says that he occasionally wakes up with L sided chest discomfort that lasts all day, no aggravating or alleviating factors. Episodes of tachycardia have occurred previously (had ED visit for similar), but usually only lasts approx 1 min. Recently in good health, [facility], [place] had flu 2 weeks ago with mild lingering cough. Denies recent fever/chills, headache, dizziness, congestion, sore throat, ear pain, shortness of breath, nausea/vomiting, change in PO intake, heartburn, abdominal pain, change in bowel/bladder function, pedal edema, rashes. Previous workups negative except for elevated A1C (6.5), for which he was started on metformin. He does not have a PCP. Denies significant PMH. No FMH of early onset cardiac disease (grandfather currently has heart issues), connective tissue disorders, clotting or bleeding disorders. Used marijuana this morning approx 5-6 hours before onset of sx. Denies recent ETOH use or tobacco use. Physical exam very reassuring. Rip is alert and oriented, in no acute distress. Easy work of breathing, lung sounds clear bilaterally. No cough during exam. No reproducible chest wall pain or obvious deformities/crepitus with palpation. Normal heart sounds, tachycardia noted with HR in 120s. No JVD or pedal edema; no calf swelling noted. Abdomen is soft, nondistended, nontender to palpation. Radial pulses intact bilaterally. D/dx includes but is not limited to: ACS, SVT, electrolyte imbalance, thyroid dysfunction, anxiety, esophageal spasm, PNA, pneumothorax, hyperglycemia. No red flags concerning for PE, as this has been recurrent with similar symptoms. HEART score 1, indicating low risk of MACE I independently interpreted the following tests: EKG reassuring, sinus tachycardia rate 120 with PAC, no changes c/w acute ischemia, normal intervals. Initial troponin 7, followed by 1 hour repeat of 7. CMP unremarkable, slightly elevated bilirubin (1.72 vs 1.46 on 05/06/24) and mild hyperglycemia (254). Mag 1.7. US notable for elevated SG (>1.030, c/w mild dehydration) and 500 glucose; no ketones or protein. UDS positive for THC (known marijuana use). TSH reassuring. CXR unremarkable, no obvious infiltrates or cardiomegaly. This was confirmed by radiologist. As patient continued to have tachycardia despite p.o. fluids and medications, D-dimer performed to rule out PE. This was reassuring, 148. He received 1 L IV fluids, heart rate reduced to upper 90s at rest. On the emergency department Rip received famotidine, 2024 mg aspirin treatment, and lorazepam for anxiety/esophageal spasm. Unclear etiology of tachycardia, possibly related to dehydration. Overall workup today reassuring. Recommend follow-up with PCP, referral provided for care management to help establish care with PCP. Holter monitor may be indicated for further evaluation. Related Data Home Medications ?Medication ?Instructions ?Recorded ?Confirmed Unknown [No Known Home Meds] 09/29/24 09/29/24 Allergies Allergy/AdvReac Type Severity Reaction Status Date / Time No Known Allergies Allergy Unverified 09/29/24 15:42 General Stated Complaint: Chest Pain JONATHAN: 3 Review of Systems Narrative: see HPI Exam Const General: cooperative, healthy appearing, comfortable, no acute distress, well developed and well groomed Nutritional Appearance: average body habitus and well nourished Orientation: alert and oriented x3 Chest Chest: normal palpation of entire chest wall Resp Effort & Inspection: normal respiratory effort and able to speak in complete sentences Auscultation: clear to auscultation bilaterally Cardio Jugular venous pressure: no JVD Rate: tachycardic Rhythm: regular rhythm Pulses: radial pulses present GI Inspection: normal to inspection and non-distended Palpation: soft, not firm, not rigid and nontender Skin General skin exam: no rashes or lesions noted Neuro General: patient alert, patient oriented x3, gait normal, tone normal and moves all extremities Extrem General: capillary refill normal, no pedal edema and no calf tenderness Course Vital Signs Vital signs: Vital Signs Temperature 36.7 C 09/29/24 15:39 Pulse 127 H 09/29/24 15:39 Respiratory Rate 20 09/29/24 15:39 Blood Pressure 174/84 H 09/29/24 15:39 Pulse Oximetry 98 09/29/24 15:39 Temperature 36.7 C 09/29/24 15:39 Temperature Source Oral 09/29/24 15:39 Pulse 127 H 09/29/24 15:39 Respiratory Rate 20 09/29/24 15:42 Respiratory Effort Normal, Non-Labored 09/29/24 15:42 Respiratory Depth Normal 09/29/24 15:42 Respiratory Pattern Normal 09/29/24 15:42 Blood Pressure 174/84 H 09/29/24 15:39 Blood Pressure Position Sitting 09/29/24 15:39 Pulse Oximetry 98 09/29/24 15:39 Oxygen Delivery Method Room Air 09/29/24 15:39 Oxygen Flow Rate 0 09/29/24 15:39 Pain Level 3 09/29/24 15:42 Medical Decision Making Imaging Data Radiologic Study: Radiologist's impression: Exam(s) XR CHEST 2V PA LATERAL EXAM: XR CHEST 2V PA LATERAL CLINICAL HISTORY: tachycardia. TECHNIQUE: 2D digital imaging was performed. COMPARISON: Prior chest x-ray 06/05/2022 FINDINGS: 2 views: Heart size is normal. The mediastinum is not widened. Lungs are clear. No infiltrates nor pleural effusions. IMPRESSION: No acute pulmonary findings. Quality:SDOH Health Related Social Needs: No Data to Display PFSH All Active Problems (Updated 09/29/24 @ 18:39 by Shira Cornelius) Tachycardia (Acute) Rash associated with COVID-19 (Acute) Medical History No significant past medical history Surgical History No significant past surgical history Social History Smoking/Tobacco Use Status: Former Tobacco Use Smoking risk assessment performed?: Yes Alcohol Intake: never Drug use: Rarely Substance use type: marijuana Do you feel safe at home: Yes Do you feel safe in your relationship?: Yes
[2024-09-29 16:16] LABS: Abs Immature Grans 0.05 10^3/uL (0.0-0.06); Absolute Basophil Count 0.05 10^3/uL (0.0-0.2); Absolute Eosinophil Count 0.09 10^3/uL (0.0-0.7); Absolute Lymphocyte Count 1.72 10^3/uL (1.2-3.4); Absolute Monocyte Count 0.48 10^3/uL (0.1-0.8); Basophils % 0.5 %; Eosinophils % 0.8 %; HCT 41.1 % (40.0-50.0); HGB 14.4 g/dL (13.5-17.5); Immature Grans % 0.5 %; Lymphocytes % 15.7 %; MCH 32.2 pg (27.0-33.0); MCV 92 fL (80-95); MPV 11.2 fL (8.0-11.0); Monocytes % 4.4 %; Neutrophils % 78.1 %; Platelet Count 158 10^3/uL (130-400); RBC 4.47 10^6/uL (4.36-5.78); RDW 15.5 % (11.8-14.1); RDW-SD 51.8 fL; WBC 10.95 10^3/uL (4.4-10.8)
[2024-09-29 16:17] LABS: Absolute Neutrophil Count 8.55 10^3/uL (1.2-6.7)
[2024-09-29] MEDS: Famotidine 20 MG/2 ML VIAL IVP (16:22)
[2024-09-29] MEDS: Aspirin 81 MG CHEW 324 MG CH (16:22)
[2024-09-29 16:34] LABS: ALT 39 U/L (16-63); AST 19 U/L (15-37); Alkaline Phosphatase 97 U/L (46-116); Anion Gap 7.5 mmol/L (3-11); BUN 16 mg/dL (7-18); Bilirubin, Total 1.72 mg/dL (0.2-1.0); CO2 28.5 mmol/L (21.0-32.0); CREATININE 0.9 mg/dL (0.70-1.30); Chloride 103 mmol/L (98-107); Estimated GFR 114.93 (mL/min/1.73m2); Glucose 254 mg/dL (74-106); Magnesium 1.7 mg/dL (1.8-2.4); Potassium 3.6 mmol/L (3.5-5.1); Sodium 139 mmol/L (136-145); Total Protein 8.1 g/dL (6.4-8.2); Troponin I 7 ng/L (<or=76)
[2024-09-29] MEDS: LORazepam 2 MG/ML VIAL 0.5 MG IVP (16:37)
[2024-09-29 16:49] LABS: Bilirubin Negative (Negative); Blood Negative (Negative); Clarity Clear (Clear); Glucose 500 mg/dL (Negative); Ketones Negative (Negative); Leukocyte Esterase Negative (Negative); Nitrite Negative (Negative); Specific Gravity >= 1.030 (1.005-1.025); Urobilinogen 0.2 mg/dL (Up to 0.2); pH 5.5 (5-8)
[2024-09-29 16:50] LABS: *AMPHETAMINES SCREEN URINE Negative (Negative); *BARBITURATES SCREEN URINE Negative (Negative); *BENZODIAZEPINES SCREEN URINE Negative (Negative); Cannabinoids THC Positive (Negative); Cocaine Screen,Urine Negative (Negative); METHADONE URINE SCREEN Negative (Negative); OPIATES URINE SCREEN Negative (Negative); Tricyclic Antidepressants Negative (Negative)
[2024-09-29 16:54] LABS: TSH (W/Ref FT4) 1.22 uIU/mL (0.36-3.74)
[2024-09-29 17:12] LABS: Hemoglobin A1C < 4.5 % (<5.7)
[2024-09-29 17:33] LABS: Troponin I 7 ng/L (<or=76)
[2024-09-29 17:35] LABS: Lab Add On Test DONE
[2024-09-29] MEDS: Normal Saline 1,000 ML 1000 ML IV (17:52)
[2024-09-29 18:03] LABS: D-Dimer 148 ng/mlFEU (<500)
== END 2024-09-29 18:58 | disposition home or self-care (01) ==
PROVIDERS: Emergency Medicine; Emergency Provider Nurse Practitioner Family
DX: R00.0 Tachycardia, unspecified (principal); R07.9 Chest pain, unspecified
CPT/HCPCS: 36415; 36416; 80053; 80307; 82962; 93005; 96361; 96374; 96375; 99284; 71046; 81003; 83036; 83735; 84443; 84484; 85025; 85379; 93010; J2060

== ENCOUNTER 2024-10-05 13:16 | Outpatient (RCR) | payer OTHER, SELFPAY | END 2024-10-05 23:59 | disposition home or self-care (01) | LOC: CARDOPNVT 13:16 | PROVIDERS: Visit Provider Nurse Practitioner Family | DX: R00.0 Tachycardia, unspecified (principal) | CPT/HCPCS: 93225 ==

== ENCOUNTER 2024-10-06 15:56 | Outpatient (RCR) | payer OTHER, SELFPAY ==
--- NOTE | 2024-10-11 11:19 | W.HOLTRPT ---
Date of service: 10/11/24 Time of Service: 11:19 Holter Monitor Report Referring Provider:: Bhumika Todd Indications:: Tachycardia Holter Monitor Note: This is a 48-hour Holter monitor. Rhythm throughout was sinus with an average heart rate of 94. Minimum was 51, maximum 151. There were very rare isolated ventricular ectopic beats. There were occasional atrial premature beats. There was no atrial fibrillation, no SVT, no pauses greater than 3 seconds, no high-grade AV block. No symptoms were reported
== END 2024-11-02 23:59 | disposition home or self-care (01) ==
LOC: CARDOPNVT 15:56
PROVIDERS: PCP Nurse Practitioner Family; Visit Provider Internal Medicine Cardiovascular Disease
DX: R00.0 Tachycardia, unspecified (principal)
CPT/HCPCS: 93226

== ENCOUNTER 2024-11-21 02:18 | Outpatient (CLI) | payer OTHER, SELFPAY ==
--- NOTE | 2024-11-21 14:30 | DI.US_ITS ---
APPROVED REPORT EXAM: Comprehensive 2D, Doppler, and color-flow Echocardiogram Patient Location: Out-Patient Button Facing Machine Operator: Joe Orlando RDCS (AE) Indications: Evaluate for tachycardia and palpitations Other Information Study Quality: Good Conclusion Normal left ventricular wall thickness and chamber size. Ejection fraction is 60 to 65%. Wall motio n is normal Normal right ventricular size and function Both atria are normal in size There is no structural or hemodynamically significant valvular disease Wall motion Left Ventricle The left ventricle is normal size. Left ventricular systolic function is normal. The left ventricular ejection fraction is within the normal range. There is normal left ventricular wall thickness. There is normal LV segmental wall motion. The left ventricular diastolic function is normal. There is no v entricular septal defect visualized. LVEF is 60-65%. Right Ventricle The right ventricle is normal size. The right ventricular systolic function is normal. Atria The left atrium size is normal. The right atrium size is normal. The interatrial septum is intact wit h no evidence for an atrial septal defect. Aortic Valve The aortic valve is normal in structure. Aortic valve is trileaflet. There is no aortic valvular sten osis. No aortic regurgitation is present. Mitral Valve The mitral valve is normal in structure. No evidence of mitral valve stenosis. There is no mitral candida ve regurgitation noted. Tricuspid Valve The tricuspid valve is normal in structure. There is no tricuspid valve stenosis. Trivial tricuspid r egurgitation. Pulmonic Valve The pulmonary valve is normal in structure. There is no pulmonic valvular stenosis. There is no pulmo talat valvular regurgitation. Great Vessels The aortic root is normal in size. The ascending aorta is normal in size. Aortic arch is normal in ca liber. IVC is normal in size and collapses >50% with inspiration. Pericardium There is no pericardial effusion. 2D Dimensions IVSD d PLAX 0.94 cm M: 0.6-1.2 Ao Root d 3.25 cm M: 3.1 - 3.7 LVPW d PLAX 0.95 cm M: 0.6 - 1.2 Ao Asc Diam d 2.95 cm M: 2.6 - 3.4 LVID d PLAX 5.39 cm M: 4.2 - 5.8 LVDs 3.45 cm M: 2.5 - 4.0 LV EF Teichholz 65.0 % FS 35.96 % LV EDV (Teich) 140.9 mL LV ESV (Teich) 49.3 mL Stroke Vol Index (Teich) 36.51 M-Mode TAPSE 2.01 cm (M/F) >1.7 Auto EF LV EDV A4C 188.3 mL LV EDV A2C 148.4 mL LV EDV BP 170.3 mL LV ESV A4C 75.7 mL LV ESV A2C 56.0 mL LV ESV BP 67.0 mL LVEF(%) A4C 59.8 % LVEF(%) A2C 62.2 % LVEF(%) BP 60.7 % LV SV A4C 112.6 ml LV SV A2C 92.4 ml LV SV BP 103.3 ml LV CO A4C 9.7 L/min LV CO A2C 7.8 L/min LV CO BP 8.8 L/min HR A4C 86.13 BPM HR A2C 84.51 BPM LV EDV Index (BP) LA Volume LA Length A4C 5.1 cm LA Length A2C 4.7 cm LA Area A4C s 12.59 cm2 LA Area A2C s 11.73 cm2 LA Vol A4C A-L 26.53 mL LA Vol A2C A-L 24.74 mL LA Vol Biplane A-L 26.6 mL LA Vol/BSA A4C A-L LA Vol/BSA A2C A-L LA Vol/BSA BP A-L 10.6 mL/m2 LA Vol A4C MOD 25.4 mL LA Vol A2C MOD 23.4 mL LA Vol BP MOD 24.7 mL RA Volume RA Area A4C 9.2 cm2 RA ESV A4C (A-L) 18.7mL RA Vol/BSA A4C A-L RA Length A4C 3.8 cm RA ESV A4C (MOD) 17.6mL LV Diastology MV E' medial 0.076 (>0.07 m/s) MV E Vmax 0.64 (0.4-1.3 m/s) MV E/E' MED 8.49 (<14) MV A Vmax 0.70 (0.4-1.3 m/s) MV E' lateral 0.136 (>0.1 m/s) E/A Ratio 0.9 MV E/E' LAT 4.73 (<14) MV E' Average 0.106 m/s MV E/E'(average) 6.08 Aortic Valve AoV Vmax 1.28 m/s LVOT Vmax 1.02 m/s AoV Peak Grad 6.5 mmHg LVOT Peak Grad 4.2 mmHg AoV Area (Vmax) 3.26 cm2 LVOT VTI 0.183 m AoV VTI 0.235 m LVOT Mean Grad 2.4 mmHg AoV Mean Shaka. 0.91 m/s LVOT SV 74.41 mL AoV Mean Grad 3.8 mmHg LVOT Diam s 2.25 cm AoV Area (VTI) 3.17 cm2 AV Regurg Peak Gr. 6.52 mmHg Velocity Ratio 0.80 Mitral Valve MV DT 209 (160-240 msec) Pulmonary Valve PV Vmax 1.03 (0.5-1.5 m/s) RVOT Vmax 0.65 m/s PV Peak Grad 4.3 mmHg RVOT Peak Gr. 1.7 mmHg PV Mean Shaka 0.74 m/s RVOT VTI 0.136 m PV Mean Grad 2.4 mmHg RVOT Mean Gr. 1.0 mmHg Tricuspid Valve TV S' 0.16 m/s
== END 2024-11-21 02:38 ==
LOC: DI 02:18
PROVIDERS: PCP Nurse Practitioner Family; Visit Provider Internal Medicine Cardiovascular Disease
DX: R00.0 Tachycardia, unspecified (principal); R00.2 Palpitations
CPT/HCPCS: 93306

== ENCOUNTER 2024-12-06 07:56 | Outpatient (CLI) | payer OTHER, SELFPAY ==
[2024-12-06 13:06] LABS: Hemoglobin A1C 5.6 % (<5.7)
[2024-12-06 13:07] LABS: BUN 16 mg/dL (7-18); CREATININE 0.7 mg/dL (0.70-1.30); Calcium 9.3 mg/dL (8.5-10.1); Calculated LDL 72 mg/dL (<100); Chloride 106 mmol/L (98-107); Cholesterol 154 mg/dL (<200); Estimated GFR 123.23 (mL/min/1.73m2); Glucose 201 mg/dL (74-106); HDL Cholesterol 38 mg/dL (>or=40); Sodium 143 mmol/L (136-145); Triglyceride 224 mg/dL (<150)
== END 2024-12-06 07:57 | disposition home or self-care (01) ==
LOC: LOS 07:56
PROVIDERS: PCP Nurse Practitioner Family; Referring Provider Nurse Practitioner Family; Visit Provider Nurse Practitioner Family
DX: Z00.00 Encounter for general adult medical examination without abnormal findings (principal); E66.9 Obesity, unspecified; R03.0 Elevated blood-pressure reading, without diagnosis of hypertension
CPT/HCPCS: 36415; 80048; 80061; 83036